=== PATIENT | male | born 1970 | race Caucasian/White ===

== ENCOUNTER 2017-04-25 13:05 | Inpatient (IN) | payer OTHER ==
[~2017-04-25] VITALS: Ht 180.3 cm; Wt 77.1 kg
[2017-04-25] MEDS ORDERED: LORAZEPAM 2 MG/1 ML VIAL IM PRN (20:00)
[2017-04-25] MEDS ORDERED: MIRALAX 17 GM POWD.PACK PO PRN (20:00)
[2017-04-25] MEDS ORDERED: MAG HYDROX/AL HYDROX/SIMETH 30 ML LIQUID UDC PO PRN (20:00)
[2017-04-25] MEDS ORDERED: LOPERAMIDE HCL 2 MG CAPSULE PO PRN ×2 (20:00)
[2017-04-25] MEDS ORDERED: DICYCLOMINE HCL 20 MG TABLET PO PRN (20:00)
[2017-04-25] MEDS ORDERED: LORAZEPAM 1 MG TABLET PO PRN (20:00)
[2017-04-25] MEDS ORDERED: MAGNESIUM HYDROXIDE 30 ML LIQUID UDC PO PRN (20:00)
[2017-04-25] MEDS ORDERED: IBUPROFEN 400 MG TABLET PO PRN (20:00)
[2017-04-25] MEDS ORDERED: ACETAMINOPHEN 325 MG TABLET PO PRN (20:00)
[2017-04-25] MEDS ORDERED: ONDANSETRON ODT 4 MG TAB.RAPDIS SL PRN (20:00)
[2017-04-25] MEDS ORDERED: ONDANSETRON 4 MG/2 ML VIAL IM PRN (20:00)
--- NOTE | 2017-04-25 20:00 | NUR ---
PRE - DMISSISON NOTE : Patient is a 46-year-old male who presents to [facility] for medically supervised withdrawal from alcohol Pt. is FULL CODE, NKA, on Reg.Diet, NO history of seizures, SI with suicidal attempt in February 2017. Primary Care Provider is in [place], [place]. He states the cause of his ongoing and frequent use have been due to difficulty coping with negative emotions, difficulty controlling impulsivity and treatment of negative withdrawal symptoms. He states his alcohol use has negatively impacted his life by impairing close relationships, decreasing his energy, impairing work productivity, and negatively impacting his physical and mental health. At the time of admission, the patient was intoxicated from recent alcohol ingestion prior to admission. Pts initial vital signs are BP: 150/100, Temp= 98.2, Pulse=98, SPO2=96% ; RR:17. Pts initial CIWA is 8 . Pt. complains of tremor, increased level of anxiety , denies pain and SI/HI at this moment. Pt. will be accepted to the unit.
[2017-04-25 20:15] VITALS: BP 150/100
[2017-04-25 20:27] LABS: *AMPHETAMINE, URINE NEGATIVE (NEGATIVE); *BARBITURATE, URINE NEGATIVE (NEGATIVE); *CANNABINOID, URINE NEGATIVE (NEGATIVE); *COCCAINE, URINE NEGATIVE (NEGATIVE); *OPIATE, URINE NEGATIVE (NEGATIVE); *PHENCYCLIDINE SCREEN,URINE NEGATIVE (NEGATIVE)
[2017-04-25 20:59] LABS: BASOPHILS # (AUTO) 0.1 K/uL (0.0-8.0); BASOPHILS % (AUTO) 1.2 % (0.0-2.0); EOSINOPHILS % (AUTO) 0.9 % (0.0-7.0); HEMATOCRIT 45.1 % (36.7-47.1); HEMOGLOBIN 15.7 g/dL (12.5-16.3); LYMPHOCYTES % (AUTO) 39.1 % (20.5-51.5); MEAN CORPUSCULAR HEMOGLOBIN 33.8 uug (23.8-33.4); MEAN CORPUSCULAR HGB CONC 35 g/dL (32.5-36.3); MEAN CORPUSCULAR VOLUME 97.4 fL (73.0-96.2); MONOCYTES # (AUTO) 0.5 K/uL (2.0-10.0); MONOCYTES % (AUTO) 10.9 % (0.0-11.0); NEUTROPHILS # (AUTO) 2.4 K/uL (1.8-8.9); NEUTROPHILS % (AUTO) 47.9 % (38.5-71.5); PLATELET COUNT (AUTO) 202 K/uL (152-348); RED BLOOD CELL COUNT(AUTO) 4.64 MIL/uL (4.06-5.63)
[2017-04-25] MEDS ORDERED: PATIENT MAY USE OWN MED- MD OK NS SCH (21:00)
[2017-04-25] MEDS ORDERED: THIAMINE HCL 200 MG/2 ML VIAL IM ONE (21:00)
[2017-04-25] MEDS ORDERED: LORAZEPAM 1 MG TABLET PO ONE (21:00)
--- NOTE | 2017-04-25 21:00 | NUR ---
ADMISSISON NOTE : Patient is a 46-year-old male who presents to [facility] for medically supervised withdrawal from alcohol , started on 5 day Ativan taper on 04/26/2017. Pt. is FULL CODE, NKA, on Reg.Diet, NO history of seizures, SI with suicidal attempt in February 2017. Primary Care Provider is in [place], [place]. He states the cause of his ongoing and frequent use have been due to difficulty coping with negative emotions, difficulty controlling impulsivity and treatment of negative withdrawal symptoms. He states his alcohol use has negatively impacted his life by impairing close relationships, decreasing his energy, impairing work productivity, and negatively impacting his physical and mental health. At the time of admission, the patient was intoxicated from recent alcohol ingestion prior to admission without evidence of withdrawal. Pts initial vital signs are BP: 150/100, Temp= 98.2, Pulse=98, SPO2=96% ; RR:17. Pts initial CIWA was is 8 . Pt. complains of tremor, increased level of anxiety , denies pain and SI/HI at this moment. Pt. was oriented to the unit and his room, is on fall and seizures precautions. Safety measures in place : bed on lowest position with side rails x2 up for safety, call light within reach. Will continue to monitor closely and offer help. SUBSTANCE USE HISTORY : VODKA 750ml PO QD last two years, last use on 04/25/2017 , Uses since 11 years old. Tx HISTORY X2 Detox. X2 Rehab. Past Medical History 1. Major depressive disorder 2. Hypertension 3. Dyslipidemia 4. Hypogonadism 5. Sleep disordered breathing Past Surgical History Surgical history: Other (Left wrist surgical repair) Past Family History 1. Hypertension 2. Alcohol use disorder 3. CAD 4. THROMBOSIS
--- NOTE | 2017-04-25 21:00 | NUR ---
PRN BENADRYL, CATAPRES Pt. complains of sleeplessness and increased level of anxiety. PRN BENADRYL, CLONIDINE given as ordered. Safety measures in place : bed on lowest position with side rails x2 up for safety, call light within reach. Will continue to monitor closely and offer help.
[2017-04-25 21:07] LABS: BILIRUBIN,TOTAL 0.8 mg/dL (0.2-1.0); CREATININE 0.9 mg/dL (0.6-1.3); MAGNESIUM 1.9 mg/dL (1.8-2.4); POTASSIUM 3.9 mmol/L (3.5-5.1); TOTAL PROTEIN, SERUM 7.4 g/dL (6.4-8.2)
[2017-04-25] MEDS: diphenhydrAMINE 50 MG CAPSULE PO PRN (21:18)
[2017-04-25] MEDS: CLONIDINE HCL 0.1 MG TABLET PO PRN (21:19)
[2017-04-25] MEDS: ATORVASTATIN 20 MG TABLET PO SCH (21:19)
[2017-04-25] MEDS: FENOFIBRATE NANOCRYSTALLIZED 145 MG TABLET PO SCH (21:22)
--- NOTE | 2017-04-25 22:00 | NUR ---
RE-ASSESSMENT GLENIS REYES Pt. is sleeping, RR=16 unlabored and even. Safety measures in place : bed on lowest position with side rails x2 up for safety, call light within reach. Will continue to monitor closely and offer help.
[2017-04-26] VITALS: BP 104/70
[2017-04-26] MEDS ORDERED: TEST5GEL2 TD (00:13)
[2017-04-26] MEDS ORDERED: SERT50TA PO (00:20)
[2017-04-26] MEDS ORDERED: ATOR20TA PO (00:20)
[2017-04-26] MEDS ORDERED: FENO145T20 PO (01:22)
[2017-04-26 04:00] VITALS: BP 135/85
[2017-04-26] MEDS ORDERED: THIAMINE HCL 200 MG/2 ML VIAL IM ONE (06:15)
[2017-04-26] MEDS ORDERED: THIAMINE HCL 200 MG/2 ML VIAL ONE (06:33)
--- NOTE | 2017-04-26 06:46 | NUR ---
END OF SHIFT NOTE : Patient is a 46-year-old male who presents to [facility] for medically supervised withdrawal from alcohol , started on 5 day Ativan taper on 04/26/2017. Pt. is FULL CODE, NKA, on Reg.Diet, NO history of seizures, SI with suicidal attempt in February 2017. Pt remains compliant with the treatment plan. PRN BENADRYL, CATAPRESS given during my shift. V/S remain WNL. RR=16, even and unlabored, lungs clear upon auscultation, abdomen soft and non- distended. Pt denies nausea, vomiting and diarrhea. CIWA taken when pt. was alert during the night, LAST CIWA=4 at 0400 , WNQFID=920 ml, voided x 3, slept 7 hours. Safety measures in place : bed on lowest position with side rails x2 up for safety, call light within reach. Will continue to monitor closely and offer help.
--- NOTE | 2017-04-26 07:30 | NUR ---
START OF SHIFT Rcvd endorsement from ongoing nurse, client is in room, he is a/o x4. Client presents with depressed mood, flat affect, and clammy skin. He reports body aches, chills/colds, stomach cramps, and fatigue. Encourage client to attend to group therapy for skills to maintain sober. Encourage client to increase PO fluid intake as tolerated to facilitate detox. Client is a 46 y/o male, admitted to [facility] for withdrawal from alcohol. Client is schedule to start 5 day Ativan taper @ 0900. Last CIWA 4 @ 0400. PRN Benadryl 50mg PO for inability to sleep, Clonidine 0.1mg PO for increased BP 150/100, noted effective, client slept 7 hrs. He denies a hx of seizures. Client reports NKA, full code, regular diet. Client side rails x 2 up/padded. Seizure precautions. Call light within reach.
[2017-04-26 08:30] VITALS: BP 132/104
[2017-04-26] MEDS: MULTIVITAMINS,THERAPEUTIC TABLET PO SCH (08:39)
[2017-04-26] MEDS: FOLIC ACID 1 MG TABLET PO SCH (08:39)
[2017-04-26] MEDS: LOSARTAN POTASSIUM 50 MG TABLET PO SCH (08:39)
[2017-04-26] MEDS: LORAZEPAM 1 MG TABLET PO SCH ×4 (08:39→20:16)
--- NOTE | 2017-04-26 08:39 | NUR ---
Scheduled cozaar 100mg PO administered BP 132/104. Will continue to monitor.
[2017-04-26] MEDS: THIAMINE HCL 100 MG TABLET PO SCH (08:40)
--- NOTE | 2017-04-26 08:44 | NUR ---
Client refused TB test, risk and benefits explained, but he still refused.
[2017-04-26] MEDS ORDERED: TUBERCULIN,PURIF.PROT.DERIV. 5 TU/0.1 ML TEST ID ONE (09:00)
--- NOTE | 2017-04-26 09:39 | NUR ---
Reassessment cozaar 100mg PO administered decreased BP 130/92. Will continue to monitor.
[2017-04-26 12:00] VITALS: BP 157/111
[2017-04-26] MEDS: SERTRALINE HCL 50 MG TABLET PO SCH (12:08)
[2017-04-26] MEDS: CLONIDINE HCL 0.1 MG TABLET PO PRN ×2 (13:22→23:23)
--- NOTE | 2017-04-26 13:22 | NUR ---
PRN Clonidine 0.1mg PO, Bentyl 20mg PO administered for increased BP 157/111, irritability, anxiety, and abdominal spasms respectively. Call light within reach. Will continue to monitor.
--- NOTE | 2017-04-26 14:22 | NUR ---
Reassessment PRN Clonidine 0.1mg PO, Bentyl 20mg PO BP 131/98, he appears less anxious, he reports relief from abdominal spasms. Call light within reach.
[2017-04-26 16:52] VITALS: BP 159/108
[2017-04-26] MEDS: hydrALAZINE HCL 50 MG TABLET PO PRN (16:58)
--- NOTE | 2017-04-26 16:58 | NUR ---
PRN Hydralazine 50mg PO administered for increased BP 159/108. Call light within reach. Will continue to monitor.
--- NOTE | 2017-04-26 17:58 | NUR ---
Reassessment PRN Hydralazine 50mg PO BP 154, P 95/108. Dr. Li notified. Call light within reach. Will continue to monitor.
[2017-04-26] MEDS ORDERED: LORAZEPAM 1 MG TABLET PO ONE (18:30)
--- NOTE | 2017-04-26 19:12 | NUR ---
ONE time dose Ativan 2mg PO for CIWA 12, BP 105/108, P 95. Incoming nurse to reassess. Call light within reach.
--- NOTE | 2017-04-26 19:15 | NUR ---
START OF SHIFT Received 46 year old male patient admitted on 04/25/17 for ETOH dependency. Pt is full code with NKA. He reports a PMHX of suicide attempt (february 2017), HTN, and depression. He reports using ETOH (vodka) 750mL daily for 2 years. Last dose was 04/25/17. He is receiving a 5 day Ativan taper and tolerating well. Per endorsement, pt noted with increased BP. He received PRN Hydralazine and one time order of Ativan 2 mg for CIWA:13. Pt is alert and oriented x4, breathing is even and unlabored. Safety measures in place. Will continue to monitor.
--- NOTE | 2017-04-26 19:23 | NUR ---
END OF SHIFT Client is a 46 y/o male, admitted to [facility] for withdrawal from alcohol. Client is schedule to start 5 day Ativan taper, tolerating well. Last CIWA 12 @ 191. PRN Clonidine 0.1mg, Hydralazine 50mg PO for increased BP. He denies a hx of seizures. Client reports NKA, full code, regular diet. Client side rails x 2 up/padded. Seizure precautions. Call light within reach.
[2017-04-26 20:00] VITALS: BP 159/107
[2017-04-26] MEDS: ATORVASTATIN 20 MG TABLET PO SCH (20:15)
[2017-04-26] MEDS: GABAPENTIN 300 MG CAPSULE PO SCH (20:16)
[2017-04-26] MEDS: diphenhydrAMINE 50 MG CAPSULE PO PRN (20:17)
[2017-04-26] MEDS: FENOFIBRATE NANOCRYSTALLIZED 145 MG TABLET PO SCH (20:17)
[2017-04-26] MEDS ORDERED: AMLODIPINE 5 MG TABLET PO SCH (21:00)
[2017-04-26] MEDS: LORAZEPAM 1 MG TABLET PO PRN (23:23)
--- NOTE | 2017-04-26 23:23 | NUR ---
PRN ATIVAN/CLONIDINE Pt noted to be disoriented to time and date, anxious, agitated and tremulous. BP: 161/104. PRN Ativan and Clonidine administered as ordered. Safety measures in place. Will monitor effectiveness.
[2017-04-27 00:23] VITALS: BP 157/95
--- NOTE | 2017-04-27 00:23 | NUR ---
PRN REASSESSMENT CIWA decreased to 12, BP: 157/95, HR: 66. Pt resting comfortably in bed with eyes closed. Breathing is even and unlabored. Safety measures in place. Will monitor.
--- NOTE | 2017-04-27 01:38 | NUR ---
PRN ATIVAN Pt noted with tremors, dizziness, intermittent confusion, and anxiety. Pt denies any auditory or visual hallucinations. CIWA:16. PRN Ativan 2 mg administered as ordered. Will monitor effectiveness.
[2017-04-27] MEDS: LORAZEPAM 1 MG TABLET PO PRN ×3 (02:33→13:19)
--- NOTE | 2017-04-27 02:33 | NUR ---
PRN ATIVAN 1 mg Pt noted with confusion and is disoriented to time and place. Pt noted to be walking in and out of room stating " I need to get some work done" Pt was redirected and oriented safely back to room. CIWA: 15. PRN Ativan 1 mg administered as ordered. Will monitor effectiveness.
--- NOTE | 2017-04-27 02:38 | NUR ---
PRN ATIVAN REASSESSMENT PRN Ativan ineffective. Pt noted with disorientation and confusion. CIWA: 15.
--- NOTE | 2017-04-27 03:07 | NUR ---
MD Communication: Patient noted to be confused, looking for items such as a computer, shoes, bag that are not present. Patient disoriented to time, place, and situation. Patient unable to be reoriented, and insists that he "has work to do on my computer, and I need to order carpets." Patient noted to be mumbling incoherently at times. Patient noted with moderate tremor and unsteady gait. CIWA 33. Dr Ferro contacted and telephone order received for Ativan 2mg IM x1 now. Pt placed on 1:1 for safety. Order entered on behalf of Dr Ferro as he is currently without computer access.
[2017-04-27] MEDS ORDERED: LORAZEPAM 2 MG/1 ML VIAL IM ONE ×2 (03:15→04:15)
--- NOTE | 2017-04-27 03:18 | NUR ---
ONE TIME ATIVAN IM Pt noted with increased anxiety,tremors, agitation, restlessness, unsteady gait and confusion. Pt repeatedly walking in and out of room stating " I have work to do, I need to get my computer and order carpets" CIWA:33. Dr. Ferro notified with order for One time Ativan 2mg IM, administered as ordered. Will monitor effectiveness.
[2017-04-27] MEDS ORDERED: LORAZEPAM 2 MG/1 ML VIAL ONE ×2 (03:28→04:26)
[2017-04-27 04:00] VITALS: BP 139/102
--- NOTE | 2017-04-27 04:06 | NUR ---
MD Communication: Dr Ferro notified of reassessment Ativan 2mg IM one-time order. CIWA decreased from 33 to 23 30 minutes after administration. New order received for Ativan 2mg IM x1 now. Order noted, repeated, and carried out.
--- NOTE | 2017-04-27 04:18 | NUR ---
MEDICATION HELD Prior to administration of Ativan 2mg IM, pt was noted to be sleeping. Respirations 14. SpO2 96%. MD made aware with order to hold dose. Safety measures in place. 1:1 sitter at bedside. Will continue to monitor.
--- NOTE | 2017-04-27 07:00 | NUR ---
Start of Shift Endorsement received from nightshift nurse. Pt is a 46 y/o male admitted for alcohol dependence. PT has been placed on a 5 day Ativan taper. PT is experiencing severe withdrawals AEB CIWA 23 at 0330. Pt has received Ativan x4 for possible symptoms of DT. Pt was placed on 1:1 due to confusion and unsteady gait. Pt is in stable condition at this time. Pt stable and oriented x4 during morning assessment. Pt reports sleeping 4 hours. Remains compliant with medication and diet regimen. All needs have been met, All safety measures in place per hospital policy. Bed in lowest position, side rails up x2, call-light within reach. Will continue to monitor
--- NOTE | 2017-04-27 07:05 | NUR ---
END OF SHIFT Pt is a 46 year old male patient admitted on 04/25/17 for ETOH dependency. Pt is full code with NKA. He reports a PMHX of suicide attempt (february 2017), HTN, and depression. He continues on his 5 day Ativan taper and tolerating well. At 2323 he received PRN Clonidine and Ativan. At 0134 he received PRN Ativan 2 mg for CIWA:16, at 0233 he received PRN Ativan 1 mg for CIWA 15. At 0318 he was noted with increased confusion, anxiety, agitation, disorientation and restlessness. CIWA:33. was notified he received one time order of Ativan 2 mg IM. He slept a total of 5hrs, Intake:1,842mL,Void:x4,BM:0 CIWA:23. Pt is oriented x1, breathing is even and unlabored. Safety measures in place. Endorsed to AM shift.
[2017-04-27 08:00] VITALS: BP 157/111
[2017-04-27] MEDS: MULTIVITAMINS,THERAPEUTIC TABLET PO SCH (08:02)
[2017-04-27] MEDS: SERTRALINE HCL 50 MG TABLET PO SCH (08:02)
[2017-04-27] MEDS: FOLIC ACID 1 MG TABLET PO SCH (08:02)
[2017-04-27] MEDS: GABAPENTIN 300 MG CAPSULE PO SCH ×3 (08:02→20:06)
[2017-04-27] MEDS: LOSARTAN POTASSIUM 50 MG TABLET PO SCH (08:02)
[2017-04-27] MEDS: AMLODIPINE 5 MG TABLET PO SCH (08:03)
[2017-04-27] MEDS: THIAMINE HCL 100 MG TABLET PO SCH (08:03)
[2017-04-27] MEDS ORDERED: LORAZEPAM 1 MG TABLET PO SCH (09:00)
[2017-04-27 12:00] VITALS: BP 148/105
[2017-04-27 14:07] LABS: HEPATITIS B SURFACE AG Negative (Negative)
[2017-04-27] MEDS ORDERED: LORAZEPAM 1 MG TABLET PO PRN ×2 (14:30)
[2017-04-27 16:00] VITALS: BP 140/100
[2017-04-27] MEDS ORDERED: hydrALAZINE HCL 25 MG TABLET PO PRN (16:00)
[2017-04-27] MEDS: hydrALAZINE HCL 50 MG TABLET PO PRN (17:05)
[2017-04-27] MEDS: LORAZEPAM 1 MG TABLET PO SCH ×2 (17:05→20:05)
--- NOTE | 2017-04-27 17:05 | NUR ---
Administered PRN Hydralazine for BP of 140/[address] Ferro.
--- NOTE | 2017-04-27 18:00 | NUR ---
Medication re-assessment Medication was partially effective AEB BP 139/92
--- NOTE | 2017-04-27 18:45 | NUR ---
End of Shift Endorsement given to nightshift nurse. Pt is a 46 y/o male admitted for alcohol dependence. PT has been placed on a 5 day Ativan taper. PT is experiencing moderate withdrawal symptoms AEB CIWA 9 at 1600. PT has received PRN Ativan 1mg x2 per Dr. Ferro. Pt continues to remain on 1:1 due to unsteady gait. Pt is in stable condition at this time. Pt stable and oriented x4. Pt remained in his room the whole day. Encouraged pt to drink more fluids, teaching was effective. Educated on diet and medication regimen. Remains compliant with medication and diet regimen. All needs have been met, All safety measures in place per hospital policy. Bed in lowest position, side rails up x2, call-light within reach. Will continue to monitor
--- NOTE | 2017-04-27 19:15 | NUR ---
START OF SHIFT Received 46 year old male patient admitted on 04/25/17 for ETOH dependency. Pt is full code with NKA. He reports a PMHX of suicide attempt (February 2017), HTN, and depression. He reports using ETOH (vodka) 750mL daily for 2 years. Last dose was 04/25/17. He is currently receiving a 5 day Ativan taper and tolerating well. Per endorsement, pt received PRN Hydralazine. Pt still noted with tremors. Pt is alert and oriented x3, breathing is even and unlabored. Safety measures in place. Will continue to monitor.
[2017-04-27 20:00] VITALS: BP 146/99
[2017-04-27] MEDS: ATORVASTATIN 20 MG TABLET PO SCH (20:06)
[2017-04-27] MEDS: FENOFIBRATE NANOCRYSTALLIZED 145 MG TABLET PO SCH (20:07)
--- NOTE | 2017-04-27 21:34 | NUR ---
PRN MOTRIN Pt complains of left wrist pain related to his carpal tunnel. PRN Motrin administered as ordered. Will monitor effectiveness.
--- NOTE | 2017-04-27 21:34 | NUR ---
PRN ATIVAN 2mg Pt verbalizes having auditory hallucinations. Pt states " I keep hearing my mom and dad talking." He denies visual hallucinations. Noted with tremors and dizziness. CIWA:16. PRN Ativan 2 mg administered as ordered. Will monitor effectiveness.
--- NOTE | 2017-04-27 22:34 | NUR ---
PRN MOTRIN REASSESSMENT PRN medication effective. Pt verbalizes his wrist feels much better. Pain 310.
--- NOTE | 2017-04-27 22:34 | NUR ---
PRN REASSESSMENT PRN Ativan 2 mg ineffective. Pt still reports auditory hallucinations and is disoriented to place. Pt states " I'm in [place]." Reoriented pt to place. CIWA:20. notified.
[2017-04-27] MEDS ORDERED: LORAZEPAM 1 MG TABLET PO ONE (23:00)
--- NOTE | 2017-04-27 23:00 | NUR ---
ONE TIME ATIVAN 2mg Pt noted with CIWA:20, was notified with new order for One time Ativan 2 mg PO. Medication administered as ordered. Will monitor effectiveness.
[2017-04-28] VITALS: BP 136/97
--- NOTE | 2017-04-28 | NUR ---
ONE TIME ATIVAN REASSESSMENT CIWA:12. Pt still noted with tremors, and mild auditory hallucinations. Pt oriented to person and place. Will monitor.
[2017-04-28 04:00] VITALS: BP 143/89
--- NOTE | 2017-04-28 07:01 | NUR ---
END OF SHIFT Pt is a 46 year old male patient admitted on 04/25/17 for ETOH dependency. Pt is full code with NKA. He reports a PMHX of suicide attempt (February 2017), HTN, and depression. At 2134 he received PRN Ativan and Motrin. At 2300 he received one time Ativan 2 mg. He slept a total of 4 hrs, Intake: 2861mL, Void: x3, BM:0, CIWA:12. Pt remains alert and oriented x2, breathing is even and unlabored. Safety measures in place. Endorsed to AM shift.
[2017-04-28 07:03] LABS: BASOPHILS # (AUTO) 0.1 K/uL (0.0-8.0); EOSINOPHILS # (AUTO) 0.2 K/uL (0.0-0.7); HEMATOCRIT 42.8 % (36.7-47.1); HEMOGLOBIN 14.6 g/dL (12.5-16.3); LYMPHOCYTES # (AUTO) 1.3 K/uL (20.0-40.0); LYMPHOCYTES % (AUTO) 24.5 % (20.5-51.5); MEAN CORPUSCULAR HEMOGLOBIN 33.9 uug (23.8-33.4); MEAN CORPUSCULAR HGB CONC 34 g/dL (32.5-36.3); MEAN CORPUSCULAR VOLUME 99.2 fL (73.0-96.2); MONOCYTES # (AUTO) 0.6 K/uL (2.0-10.0); MONOCYTES % (AUTO) 11.5 % (0.0-11.0); NEUTROPHILS # (AUTO) 3.1 K/uL (1.8-8.9); RED BLOOD CELL COUNT(AUTO) 4.31 MIL/uL (4.06-5.63); WHITE BLOOD COUNT (AUTO) 5.2 K/uL (3.6-10.2)
--- NOTE | 2017-04-28 07:05 | NUR ---
Start of Shift Endorsement received from nightshift nurse. Pt is a 46 y/o male admitted for alcohol dependence. PT has been placed on a 5 day Ativan taper. PT is experiencing severe withdrawals AEB CIWA 12 at midnight. Pt has received Ativan x2 for severe withdrawal symptoms. Pt continues to be on 1:1 due to confusion and unsteady gait. Pt is in stable condition at this time. Pt stable and oriented x4 during morning assessment. Pt reports sleeping 4 hours. Remains compliant with medication and diet regimen. All needs have been met, All safety measures in place per hospital policy. Bed in lowest position, side rails up x2, call-light within reach. Will continue to monitor
[2017-04-28 07:13] LABS: PLATELET COUNT (AUTO) 135 K/uL (152-348)
[2017-04-28 07:45] LABS: BILIRUBIN,DIRECT 0.3 mg/dL (0.0-0.2); BILIRUBIN,TOTAL 0.9 mg/dL (0.2-1.0); CREATININE 0.7 mg/dL (0.6-1.3); PHOSPHOROUS 4.2 mg/dL (2.5-4.9); TOTAL PROTEIN, SERUM 6.6 g/dL (6.4-8.2)
[2017-04-28 08:00] VITALS: BP 131/90
[2017-04-28] MEDS: LORAZEPAM 1 MG TABLET PO SCH ×3 (08:40→21:00)
[2017-04-28] MEDS: THIAMINE HCL 100 MG TABLET PO SCH (08:40)
[2017-04-28] MEDS: SERTRALINE HCL 50 MG TABLET PO SCH (08:40)
[2017-04-28] MEDS: AMLODIPINE 5 MG TABLET PO SCH (08:40)
[2017-04-28] MEDS: GABAPENTIN 300 MG CAPSULE PO SCH ×3 (08:40→21:00)
[2017-04-28] MEDS: MULTIVITAMINS,THERAPEUTIC TABLET PO SCH (08:40)
[2017-04-28] MEDS: LOSARTAN POTASSIUM 50 MG TABLET PO SCH (08:40)
[2017-04-28] MEDS: FOLIC ACID 1 MG TABLET PO SCH (08:40)
[2017-04-28] MEDS ORDERED: LORAZEPAM 1 MG TABLET PO SCH (09:00)
[2017-04-28 12:05] VITALS: BP 136/96
[2017-04-28] MEDS ORDERED: LORAZEPAM 1 MG TABLET PO PRN ×2 (15:30)
[2017-04-28 16:00] VITALS: BP 130/97
--- NOTE | 2017-04-28 18:50 | NUR ---
End of Shift Endorsement given to nightshift nurse. Pt is a 46 y/o male admitted for alcohol dependence. PT has been placed on a 5 day Ativan taper. PT is experiencing moderate withdrawal symptoms AEB CIWA 5 at 1600. PT has not received any PRN medications. Pt continues to remain on 1:1 due to unsteady gait. Pt is in stable condition at this time. Pt did not participate in groups or activities. Educated pt on symptoms of withdrawals. Encouraged pt to drink more fluids. Educated pt on diet and medication regimen. Intake: 1950ml, Void x4, BM x1. Pt stable and oriented x4. Pt remained in his room the whole day. Encouraged pt to drink more fluids, teaching was effective. Educated on diet and medication regimen. Remains compliant with medication and diet regimen. All needs have been met, All safety measures in place per hospital policy. Bed in lowest position, side rails up x2, call-light within reach. Will continue to monitor
--- NOTE | 2017-04-28 19:02 | NUR ---
Start of shift note Received report from day shift nurse. Pt is a 46 yo male, A+Ox4, presenting to [facility] for ETOH dependence. Pt has NKA, is on Full code status, and on Regular diet. Pt is on 1:1 sitter for confusion. Pt is on Fall and Seizure precautions. Pt has HX of S/I, HTN, Depression, Hyperlipidemia, and low testosterone. Pt is on 6 day Ativan taper, tolerated well. No s/s of distress noted at this time. Respirations even and unlabored. Will continue to monitor.
[2017-04-28 20:05] VITALS: BP 148/100
[2017-04-28] MEDS: ATORVASTATIN 20 MG TABLET PO SCH (21:00)
[2017-04-28] MEDS: FENOFIBRATE NANOCRYSTALLIZED 145 MG TABLET PO SCH (21:00)
[2017-04-28] MEDS: CLONIDINE HCL 0.1 MG TABLET PO PRN (21:00)
--- NOTE | 2017-04-28 21:00 | NUR ---
PRN Clonidine Pt noted with b/p = 148/100. PRN Clonidine 0.1mg given and tolerated well. Will reassess within 1 HR. Will continue to monitor.
--- NOTE | 2017-04-28 22:00 | NUR ---
PRN Clonidine Reassessment Medication effective. Pt noted with b/p 140/82. No s/s of ASE/distress noted at this time. Respirations even and unlabored. Will continue to monitor.
[2017-04-29 00:15] VITALS: BP 132/81
[2017-04-29 04:18] VITALS: BP 138/85
--- NOTE | 2017-04-29 07:00 | NUR ---
End of shift note Pt is a 46 yo male, A+Ox4, presenting to [facility] for ETOH dependence. Pt has NKA, is on Full code status, and on Regular diet. Pt is on 1:1 sitter for confusion. Pt is on Fall and Seizure precautions. Pt has HX of S/I, HTN, Depression, Hyperlipidemia, and low testosterone. Pt is on 6 day Ativan taper, tolerated well. Pt was given PRN Clonidine @2100. Pt slept for a total of 9 HRS. Last CIWA: 4 @0400. No s/s of distress noted at this time. Respirations even and unlabored. Will endorse to day shift nurse.
[2017-04-29 08:00] VITALS: BP 128/86
[2017-04-29] MEDS ORDERED: LORAZEPAM 1 MG TABLET PO SCH (09:00)
[2017-04-29] MEDS: GABAPENTIN 300 MG CAPSULE PO SCH (09:22)
[2017-04-29] MEDS: MULTIVITAMINS,THERAPEUTIC TABLET PO SCH (09:22)
[2017-04-29] MEDS: AMLODIPINE 5 MG TABLET PO SCH (09:23)
[2017-04-29] MEDS: LOSARTAN POTASSIUM 50 MG TABLET PO SCH (09:23)
[2017-04-29] MEDS: FOLIC ACID 1 MG TABLET PO SCH (09:23)
[2017-04-29] MEDS: SERTRALINE HCL 50 MG TABLET PO SCH (09:23)
[2017-04-29] MEDS: THIAMINE HCL 100 MG TABLET PO SCH (09:23)
[2017-04-29] MEDS: LORAZEPAM 1 MG TABLET PO SCH ×4 (09:23→20:56)
--- NOTE | 2017-04-29 09:52 | NUR ---
Start of Shift Endorsement received from nightshift nurse. Pt is a 46 y/o male admitted for alcohol dependence. PT has been placed on a 5 day Ativan taper. PT is experiencing mild withdrawals AEB CIWA 4 at 0800. Pt has received PRN clonidine for withdrawal symptoms. Pt continues to be on 1:1 due to unsteady gait. Pt is in stable condition at this time. Pt stable and oriented x4 during morning assessment. Pt reports sleeping 4 hours. Remains compliant with medication and diet regimen. All needs have been met, All safety measures in place per hospital policy. Bed in lowest position, side rails up x2, call-light within reach. Will continue to monitor
--- NOTE | 2017-04-29 09:54 | NUR ---
Therapist prompted client about group times. Client stated he would attend all groups today.
[2017-04-29 12:00] VITALS: BP 136/95
--- NOTE | 2017-04-29 13:46 | NUR ---
Endorsed PT to Sandy RICHMOND
--- NOTE | 2017-04-29 13:47 | NUR ---
Assumed patient care Received endorsement from outgoing nurse. Pt is resting in bed with 1:[address] for safety. He is observed with facial flushing and tremors. Pt is A&O x3. He is mildly confused and states that he is discharging today. Explained to patient the plan of care. He verbalized understanding.
[2017-04-29] MEDS: GABAPENTIN 400 MG CAPSULE PO SCH ×2 (14:46→20:57)
[2017-04-29 16:30] VITALS: BP 122/86
--- NOTE | 2017-04-29 19:22 | NUR ---
END OF SHIFT Report provided to wax pattern repairer nurse. Pt is attending a group meeting. He is a 46 yo male admitted to [facility] on 04/25 for ETOH dependence. He is A&O and ambulatory. NKA, full code status, and on a regular diet. PMH of HTN, hypercholesterolemia, low testosterone, depression, and SI attempt 02/2017. On admission he reported drinking vodka 750mL per day. Modified Ativan taper started 04/26. He denies SI/HI. He had tremors, facial flushing, dilated pupils, and anxiety. No PRN medications administered. Pt's UDS was positive for BZD's on admission. Charge nurse asked pt about his BZD use and pt could not recall using any BZD's. Last CIWA was 7. He drank 202mL. Fall and seizure precautions in place.
--- NOTE | 2017-04-29 19:23 | NUR ---
Start of shift note Received report from day shift nurse. Pt is a 46 yo male, A+Ox4, presenting to [facility] for ETOH dependence. Pt has NKA, is on Full code status, and on Regular diet. Pt is on 1:1 sitter for confusion. Pt is on Fall and Seizure precautions. Pt has HX of S/I, HTN, Depression, Hyperlipidemia, and low testosterone. Pt is on 6 day Ativan taper, tolerated well. No s/s of distress noted at this time. Respirations even and unlabored. Will continue to monitor.
[2017-04-29 20:39] VITALS: BP 137/91
[2017-04-29] MEDS: FENOFIBRATE NANOCRYSTALLIZED 145 MG TABLET PO SCH (20:56)
[2017-04-29] MEDS: PROPRANOLOL HCL 20 MG TABLET PO SCH (20:57)
[2017-04-29] MEDS: ATORVASTATIN 20 MG TABLET PO SCH (20:57)
[2017-04-30 00:38] VITALS: BP 131/84
[2017-04-30 04:36] VITALS: BP 122/75
--- NOTE | 2017-04-30 06:51 | NUR ---
End of shift note Pt is a 46 yo male, A+Ox4, presenting to [facility] for ETOH dependence. Pt has NKA, is on Full code status, and on Regular diet. Pt is on 1:1 sitter for confusion. Pt is on Fall and Seizure precautions. Pt has HX of S/I, HTN, Depression, Hyperlipidemia, and low testosterone. Pt is on 6 day Ativan taper, tolerated well. Pt slept for a total of 9 HRS. Last CIWA: 3 @0400. No s/s of distress noted at this time. Respirations even and unlabored. Will endorse to day shift nurse.
--- NOTE | 2017-04-30 07:30 | NUR ---
START OF SHIFT Pt 46 y/o male admitted for etoh dependence. Pt received in room on bed with eyes closed resting, but easily arousable to name. Pt alert and oriented to name, place, and time. Perrla. Skin warm and slightly moist to touch. Respirations even and unlabored. Pt with sitter 1:1 to monitor safety. It was reported that pt slept for 9 hours last night. Bed on lowest position with side rails x2 up for safety. Call light within reach. NO distress noted at this time.
[2017-04-30] MEDS: SERTRALINE HCL 50 MG TABLET PO SCH (08:22)
[2017-04-30] MEDS: LOSARTAN POTASSIUM 50 MG TABLET PO SCH (08:22)
[2017-04-30] MEDS: PROPRANOLOL HCL 20 MG TABLET PO SCH ×2 (08:22→21:21)
[2017-04-30] MEDS: AMLODIPINE 5 MG TABLET PO SCH (08:22)
[2017-04-30] MEDS: THIAMINE HCL 100 MG TABLET PO SCH (08:23)
[2017-04-30] MEDS: MULTIVITAMINS,THERAPEUTIC TABLET PO SCH (08:23)
[2017-04-30] MEDS: FOLIC ACID 1 MG TABLET PO SCH (08:23)
[2017-04-30] MEDS: LORAZEPAM 1 MG TABLET PO SCH ×3 (08:23→21:21)
[2017-04-30] MEDS: GABAPENTIN 400 MG CAPSULE PO SCH ×3 (08:23→21:21)
[2017-04-30 08:26] VITALS: BP 132/94
[2017-04-30] MEDS ORDERED: LORAZEPAM 1 MG TABLET PO SCH (09:00)
[2017-04-30 12:53] VITALS: BP 130/86
[2017-04-30 16:00] VITALS: BP 124/85
--- NOTE | 2017-04-30 18:37 | NUR ---
END OF SHIFT Pt 46 y/o male admitted for etoh dependence. Pt alert and oriented to name, place, and time. Perrla. Skin warm and slightly moist to touch. Respirations even and unlabored. Bilateral hand tremors noted. Pt observed mostly isolative to his room today. Pt attended group activity today. Pt was DCd from 1:1 by MD this morning. Pt was seen by MD. Pt medication compliant and tolerated well. No ASE noted. Bed on lowest position with side rails x2 up for safety. Call light within reach. No distress noted at this time.
--- NOTE | 2017-04-30 19:10 | NUR ---
Start of shift note Received report from day shift nurse. Pt is a 46 yo male, A+Ox4, presenting to [facility] for ETOH dependence. Pt has NKA, is on Full code status, and on Regular diet. Pt is on Fall and Seizure precautions. Pt has HX of S/I, HTN, Depression, Hyperlipidemia, and low testosterone. Pt is on 6 day Ativan taper, tolerated well. No s/s of distress noted at this time. Respirations even and unlabored. Will continue to monitor.
[2017-04-30 20:10] VITALS: BP 131/90
[2017-04-30] MEDS: ATORVASTATIN 20 MG TABLET PO SCH (21:20)
[2017-04-30] MEDS: FENOFIBRATE NANOCRYSTALLIZED 145 MG TABLET PO SCH (21:20)
[2017-05-01 00:35] VITALS: BP 121/92
[2017-05-01 04:39] VITALS: BP 128/85
--- NOTE | 2017-05-01 07:00 | NUR ---
End of shift note Pt is a 46 yo male, A+Ox4, presenting to [facility] for ETOH dependence. Pt has NKA, is on Full code status, and on Regular diet. Pt is on Fall and Seizure precautions. Pt has HX of S/I, HTN, Depression, Hyperlipidemia, and low testosterone. Pt is on 6 day Ativan taper, tolerated well. Pt slept for a total of 7 HRS. Last CIWA: 2 @0400. No s/s of distress noted at this time. Respirations even and unlabored. Will endorse to day shift nurse.
--- NOTE | 2017-05-01 07:27 | NUR ---
START OF SHIFT Pt 46 y/o male admitted for etoh dependence. Pt received in room on bed with eyes closed resting, but easily arousable to name. Pt alert and oriented to name, place, and time. Perrla. Skin warm and slightly moist to touch. Respirations even and unlabored. It was reported that pt slept for 7 hours last night. Bed on lowest position with side rails x2 up for safety. Call light within reach. NO distress noted at this time.
[2017-05-01 08:00] VITALS: BP 123/80
[2017-05-01] MEDS: LORAZEPAM 1 MG TABLET PO SCH ×2 (08:34→20:05)
[2017-05-01] MEDS: MULTIVITAMINS,THERAPEUTIC TABLET PO SCH (08:35)
[2017-05-01] MEDS: AMLODIPINE 5 MG TABLET PO SCH (08:35)
[2017-05-01] MEDS: THIAMINE HCL 100 MG TABLET PO SCH (08:35)
[2017-05-01] MEDS: SERTRALINE HCL 50 MG TABLET PO SCH (08:35)
[2017-05-01] MEDS: FOLIC ACID 1 MG TABLET PO SCH (08:35)
[2017-05-01] MEDS: PROPRANOLOL HCL 20 MG TABLET PO SCH ×2 (08:36→20:05)
[2017-05-01] MEDS: LOSARTAN POTASSIUM 50 MG TABLET PO SCH (08:36)
[2017-05-01] MEDS: GABAPENTIN 400 MG CAPSULE PO SCH ×3 (08:36→20:04)
[2017-05-01] MEDS ORDERED: LORAZEPAM 1 MG TABLET PO SCH (09:00)
[2017-05-01 12:00] VITALS: BP 121/88
[2017-05-01 16:00] VITALS: BP 127/81
[2017-05-01 20:00] VITALS: BP 132/92
--- NOTE | 2017-05-01 20:00 | NUR ---
Start of Shift Pt is a 46 year old male admitted for ETOH dependence, placed on 5 day Ativan taper. Pt reported consuming Vodka 750ml/daily. PMH: HTN, depression, SI with attempt 02/2017 (cut wrists), high cholesterol and low testosterone. NKA, fall/seizure precautions, regular diet and full code. Upon assessment, pt reports feeling anxious, reports feeling mild body aches, denies visual/auditory hallucinations, Respirations even/unlabored, denies SOB/chest pain, denies n/v/d, medications due. Safety measures in place, call light within reach, side rails up x2, bed locked and in low positions. Will continue to monitor.
[2017-05-01] MEDS: ATORVASTATIN 20 MG TABLET PO SCH (20:05)
[2017-05-01] MEDS: FENOFIBRATE NANOCRYSTALLIZED 145 MG TABLET PO SCH (20:05)
[2017-05-02] VITALS: BP 124/85
--- NOTE | 2017-05-02 | NUR ---
CIWA deferred d/t sleeping, to assess while pt is awake as ordered. BP 124/85, pulse 86, resp 16, SpO2 97% room air, temp 98.[address], will continue to monitor.
[2017-05-02 04:00] VITALS: BP 119/79
--- NOTE | 2017-05-02 04:00 | NUR ---
CIWA deferred d/t sleeping, to assess while pt is awake as ordered. BP 119/79, pulse 81, resp 14, SpO2 98% room air, temp 98.[address], will continue to monitor.
--- NOTE | 2017-05-02 07:00 | NUR ---
End of Shift Pt is a 46 year old male admitted for ETOH dependence, placed on 5 day Ativan taper. Pt reported consuming Vodka 750ml/daily. PMH: HTN, depression, SI with attempt 02/2017 (cut wrists), high cholesterol and low testosterone. NKA, fall/seizure precautions, regular diet and full code. During shift, pt reported feeling anxious, reported feeling mild body aches, denies visual/auditory hallucinations scheduled taper medications administered, CIWA 3. No PRN medications administered during shift. Pt slept for 6 hours, intake of 2500 ml PO, voids x2 and stool x1. Safety measures in place, call light within reach, side rails up x2, bed locked and in low positions. Endorsed to day shift nurse.
[2017-05-02 08:00] VITALS: BP 123/88
--- NOTE | 2017-05-02 08:00 | NUR ---
Start of Shift Notes: Received patient in his room. Awake, alert and verbally responsive. Oriented x 4. Respirations even and unlabored. No SOB noted. Skin warm and dry to touch. Abdomen soft and non-distended. BS (+) in all 4 quadrants. No complains of N/V/D or constipation noted. Bladder non-distended. Voids independently. Ambulatory ad radha with steady gait. Patient is a 46 year old male admtted for ETOH dependence who was placed on a 5-day Ativan taper as ordered. No adverse reactions noted. Prior to admission, patient was using 750cc of Vodka daily x 2 years. Has past medical hx of SI, HTN, Depression, hypercholesterolemia, and low testosterone level. Educated patient on his current plan of care for the day and his medication regimen. Encouraged oral fluid intake and encouraged group participation to learn new skills to prevent relapse.
[2017-05-02] MEDS: PROPRANOLOL HCL 20 MG TABLET PO SCH ×2 (08:36→20:29)
[2017-05-02] MEDS: AMLODIPINE 5 MG TABLET PO SCH (08:36)
[2017-05-02] MEDS: FOLIC ACID 1 MG TABLET PO SCH (08:36)
[2017-05-02] MEDS: MULTIVITAMINS,THERAPEUTIC TABLET PO SCH (08:36)
[2017-05-02] MEDS: SERTRALINE HCL 50 MG TABLET PO SCH (08:36)
[2017-05-02] MEDS: GABAPENTIN 400 MG CAPSULE PO SCH ×3 (08:37→20:29)
[2017-05-02] MEDS: THIAMINE HCL 100 MG TABLET PO SCH (08:37)
[2017-05-02] MEDS: LOSARTAN POTASSIUM 50 MG TABLET PO SCH (08:37)
[2017-05-02 12:00] VITALS: BP 126/83
[2017-05-02 17:54] VITALS: BP 136/87
--- NOTE | 2017-05-02 18:57 | NUR ---
End of Shift Notes: Patient is on close monitoring. Ativan taper completed. Will be discharging tomorrow. No adverse reactions noted. Patient is tolerating taper well. No adverse reactions noted. VS monitored closely. No significant abnormalities noted. Withdrawal symptoms were closely monitored. Initial CIWA 3. patient presented withh mild anxiety and sweats. Denies S/I or H/I. No AV hallucinations noted. Last CIWA 0. Per patient, Ativan has been effective inreducing his withdrawal symptoms. Requires encouragement to participate in group and activities. All needs met and attended. Will continue to monitor closely.
[2017-05-02 20:00] VITALS: BP 134/91
--- NOTE | 2017-05-02 20:00 | NUR ---
Start of Shift Pt is a 46 year old male admitted for ETOH dependence, placed on 5 day Ativan taper - completed. Pt reported consuming Vodka 750ml/daily. PMH: HTN, depression, SI with attempt 02/2017 (cut wrists), high cholesterol and low testosterone. NKA, fall/seizure precautions, regular diet and full code. Upon assessment, pt reports feeling anxious due to discharge tomorrow, respirations even/unlabored, denies SOB/chest pain, denies n/v/d. Pt is scheduled for discharge tomorrow. Safety measures in place, call light within reach, side rails up x2, bed locked and in low positions. Will continue to monitor.
[2017-05-02] MEDS: FENOFIBRATE NANOCRYSTALLIZED 145 MG TABLET PO SCH (20:29)
[2017-05-02] MEDS: ATORVASTATIN 20 MG TABLET PO SCH (20:29)
[2017-05-02] MEDS ORDERED: DIPH50CA37 PO (22:12)
[2017-05-02] MEDS ORDERED: AMLO5TAB2 PO (22:12)
[2017-05-02] MEDS ORDERED: PROP20TA22 PO (22:12)
[2017-05-02] MEDS ORDERED: ATOR20TA PO (22:12)
[2017-05-02] MEDS ORDERED: LOSA50TA3 PO (22:12)
[2017-05-02] MEDS ORDERED: FENO145T PO (22:12)
[2017-05-02] MEDS ORDERED: GABA-536 PO (22:12)
[2017-05-03] VITALS: BP 133/98
[2017-05-03] MEDS: diphenhydrAMINE 50 MG CAPSULE PO PRN (00:19)
--- NOTE | 2017-05-03 00:19 | NUR ---
PRN Administration Pt reports 1st episode of diarrhea. Pt requests sleeping aid. Imodium 4mg PRN & Benadryl 50mg PRN administered. Safety measures in place, Will continue to monitor.
--- NOTE | 2017-05-03 01:19 | NUR ---
PRN Reassessment Upon reassessment, pt is resting, eyes closed, respirations even/unlabored. Safety measures in place, will continue to monitor.
[2017-05-03 04:00] VITALS: BP 120/82
--- NOTE | 2017-05-03 04:00 | NUR ---
CIWA deferred d/t pt sleeping, to assess while pt is awake as ordered. BP 120/82, pulse 67, resp 16, SpO2 100%, Temp 97.[address], will continue to monitor.
--- NOTE | 2017-05-03 06:06 | NUR ---
Discharge Pt is in stable condition, vitals WNL, skin is intact, denies any suicidal or homicidal ideations, all discharge paper work signed and dated, pt was discharged from [facility] on 05/03/2017 at 0606. Pt left building with all of his medications, belongings and prescriptions. notified.
== END 2017-05-03 06:00 | disposition home or self-care (01) | DRG 895 ==
LOC: SRC 18:47
PROVIDERS: ADMIT Internal Medicine; ATTEND Internal Medicine
PROC: HZ2ZZZZ Detoxification Services for Substance Abuse Treatment (ICD-10-PCS; principal; 2017-04-25)
PROC: HZ31ZZZ Individual Counseling for Substance Abuse Treatment, Behavioral (ICD-10-PCS; 2017-04-26)
PROC: HZ41ZZZ Group Counseling for Substance Abuse Treatment, Behavioral (ICD-10-PCS; 2017-04-30)
DX: F10.220 Alcohol dependence with intoxication, uncomplicated (principal); F33.2 Major depressive disorder, recurrent severe without psychotic features; K70.10 Alcoholic hepatitis without ascites; F10.232 Alcohol dependence with withdrawal with perceptual disturbance; E29.1 Testicular hypofunction; Y90.8 Blood alcohol level of 240 mg/100 ml or more; E78.5 Hyperlipidemia, unspecified; Z81.1 Family history of alcohol abuse and dependence; Z82.49 Family history of ischemic heart disease and other diseases of the circulatory system; G47.30 Sleep apnea, unspecified; Z91.5 Personal history of self-harm
CPT/HCPCS: 36415; 70030-TC; 80307; 80346; 83735; 84100; 85025; 86592; 86705; 86803; 87340; 87806; A4663; G0480; J2060; J3411; Q0163